=== PATIENT | female | born 1980 | race Two or more races ===

== ENCOUNTER 2016-10-13 23:01 | Emergency (ER) | payer OTHER ==
[~2016-10-13] VITALS: Ht 162.6 cm; Wt 47.6 kg
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
[2016-10-14] MEDS ORDERED: IBUPROFEN 600 MG TABLET ONE ×2 (00:32→00:34)
[2016-10-14] MEDS: IBUPROFEN 600 MG TABLET PO ONE (00:34)
--- NOTE | 2016-10-14 00:35 | NUR ---
Patient discharged to home in stable conditon. Written and verbal after care instructions given. Patient verbalizes understanding of instructions. pt transferred to car per fathers and pts request, belongings at side...
== END 2016-10-14 00:37 | disposition home or self-care (01) ==
LOC: ER 23:01
DX: S06.0X0A Concussion without loss of consciousness, initial encounter (principal); F32.9 Major depressive disorder, single episode, unspecified; R51 Headache; Y09 Assault by unspecified means; Y93.89 Activity, other specified; Y99.8 Other external cause status; Y92.89 Other specified places as the place of occurrence of the external cause
CPT/HCPCS: 70450; A4663

== ENCOUNTER 2017-09-02 11:53 | Emergency (ER) | payer OTHER ==
[~2017-09-02] VITALS: Ht 162.6 cm; Wt 46.3 kg
--- NOTE | 2017-09-02 13:02 | NUR ---
PT IS IN ROOM #2B. DR GARCIA EVALUATED THE PT.
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
--- NOTE | 2017-09-02 13:30 | NUR ---
PT WAS D/C TO HOME BY DR GARCIA. D/C INSTRUCTIONS GIVEN TO THE PT BY DR GARCIA.
[2017-09-02 13:32] VITALS: BP 125/69
--- NOTE | 2017-09-05 15:22 | NUR ---
Pt Reflex throat Cx came positive for Staph Aureus heavy growth. Results were discussed with . He feels the pt received appropriate treatment, Cx is result of normal throat sheron and no antibiotic needed at this time.
== END 2017-09-02 13:36 | disposition home or self-care (01) ==
LOC: ER 11:53
DX: J02.8 Acute pharyngitis due to other specified organisms (principal); B97.89 Other viral agents as the cause of diseases classified elsewhere
CPT/HCPCS: 36415; 86403; 87070; 87077; A4663